=== PATIENT | female | born 1965 | race American Indian/Alaskan Native ===

== ENCOUNTER 2017-09-05 12:56 | Outpatient (CLI) | payer MEDICAID ==
--- NOTE | 2017-09-06 08:51 | Mammography Report ---
BILATERAL DIGITAL SCREENING MAMMOGRAM with CAD: 09/05/17 12:56:00 CLINICAL: Routine screening. COMPARISON:01/03/16 FINDINGS: The breasts are almost entirely fatty.The previously described left upper outer fatty mass has been excised. A new right focal asymmetry requires additional imaging. No architectural distortion or suspicious calcifications.The left breast is negative. IMPRESSION: Right asymmetry requiring further workup. BI-RADS CATEGORY: 0 -- Additional Imaging Evaluation Required RECOMMENDATION: Recall for right spot compression views and right breast ultrasound if needed. ACR BI-RADS MAMMOGRAPHIC CODES: 0 = Needs additional imaging evaluation; 1 = Negative; 2 = Benign; 3 = Probably benign; 4 = Suspicious; 5 = Malignant; 6 = Known biopsy-proven malignancy COMMENT: 1. Dense breast tissue, i.e., adenosis, fibrocystic changes, etc., may obscure an underlying neoplasm. 2. Approximately 10% of cancers are not detected with mammography. 3. A negative mammography report should not delay biopsy if a clinically suspicious mass is present. COMMENT: Patient follow-up letters are generated via our [employer] application.
== END 2017-09-05 12:57 | disposition home or self-care (01) ==
LOC: SPVWC 12:56
PROVIDERS: ATTEND Family Medicine
DX: Z12.31 Encounter for screening mammogram for malignant neoplasm of breast (principal)
CPT/HCPCS: 77067; G0202

== ENCOUNTER 2017-12-09 08:13 | Outpatient (CLI) | payer MEDICARE ==
--- NOTE | 2017-12-09 11:36 | Mammography Report ---
BILATERAL DIGITAL DIAGNOSTIC MAMMOGRAM with CAD and RIGHT BREAST ULTRASOUND: 12/09/17 CLINICAL: Recall to evaluate a right asymmetry on a screening mammogram. Status post benign surgical excision in the upper outer left breast. She complains of pain at the incision. COMPARISON:09/05/17 and 01/03/16 mammograms FINDINGS: MLO and CC spot compression views of the right breast demonstrate a persistent partially circumscribed oval focal asymmetry at approximately 5 o'clock.The left breast is negative with normal fat at the upper outer postsurgical scar. The previously described left fatty mass has been excised. Ultrasound of the right breast demonstrated a benign cyst at 5 o'clock 5 cm from the nipple. It measures 7 x 5 x 7 mm and correlates with the mammographic asymmetry. IMPRESSION: A benign 7 mm right breast cyst at 5 o'clock.Negative left breast. No explanation for left breast pain. BI-RADS CATEGORY: 2 -- Benign RECOMMENDATION: Clinical followup and routine mammographic screening in one year. COMMENT: Patient follow-up letters are generated by our [employer] application.
== END 2017-12-09 08:14 | disposition home or self-care (01) ==
LOC: SPVWC 08:13
PROVIDERS: ATTEND Obstetrics & Gynecology
DX: N60.01 Solitary cyst of right breast (principal); R92.8 Other abnormal and inconclusive findings on diagnostic imaging of breast
CPT/HCPCS: 77066

== ENCOUNTER 2019-02-11 13:22 | Outpatient (CLI) | payer MEDICARE ==
--- NOTE | 2019-02-11 16:16 | Mammography Report ---
BILATERAL DIGITAL SCREENING MAMMOGRAM with CAD: 02/11/19 13:22:00 CLINICAL: Routine screening.History of a left benign surgical excision. COMPARISON:12/09/17, 09/05/17 and 01/03/16 FINDINGS: There are bilateral scattered fibroglandular densities.A previous described right lower outer breast cyst has resolved. Minimal left upper postsurgical scar. No mass, architectural distortion or suspicious calcifications. IMPRESSION: No mammographic evidence of malignancy. BI-RADS CATEGORY: 2 -- Benign RECOMMENDATION: Routine mammographic screening in one year. COMMENT: Patient follow-up letters are generated by our [employer] application.
== END 2019-02-11 13:23 | disposition home or self-care (01) ==
LOC: SPVWC 13:22
PROVIDERS: ATTEND Family Medicine
DX: Z12.31 Encounter for screening mammogram for malignant neoplasm of breast (principal)
CPT/HCPCS: 77067